=== PATIENT | male | born 1945 | race Caucasian/White ===

== ENCOUNTER 2021-12-25 14:20 | Emergency (ER) | payer OTHER ==
[~2021-12-25] VITALS: Ht 177.8 cm; Wt 74.8 kg
[2021-12-25] MEDS ORDERED: IV NORMAL SALINE 1000 ML BAG IV ONE ×2 (14:30→16:00)
[2021-12-25] MEDS ORDERED: POTA10CA43 PO (14:34)
[2021-12-25] MEDS ORDERED: HYDR25TA4 PO (14:34)
[2021-12-25] MEDS ORDERED: LEVO50TA8 PO (14:34)
[2021-12-25] MEDS ORDERED: ATOR20TA PO (14:34)
[2021-12-25] MEDS ORDERED: METO25TA6 PO (14:34)
[2021-12-25] MEDS ORDERED: DABI150C PO (14:34)
[2021-12-25] MEDS ORDERED: LOSA25TA3 PO (14:34)
--- NOTE | 2021-12-25 14:42 | NUR ---
patient brought in by paramedics having a syncopal episode at home was able to reach his recliner to sit and doesnt remember passed that time when he was brought in by paramedics
--- NOTE | 2021-12-25 14:43 | NUR ---
patient evaluated and seen by Dr. Barber upon arrival
[2021-12-25 14:51] LABS: HEMATOCRIT 45.5 % (36.7-47.1); MEAN CORPUSCULAR HEMOGLOBIN 31.6 uug (23.8-33.4); MEAN CORPUSCULAR VOLUME 92.9 fL (73.0-96.2); PLATELET COUNT (AUTO) 210 K/uL (152-348)
[2021-12-25 14:58] LABS: ALANINE AMINOTRANSFERASE 36 U/L (16-63); ALKALINE PHOSPHATASE 57 U/L (50-136); ASPARTATE AMINOTRANSFERASE 20 U/L (15-37); BILIRUBIN,DIRECT 0.2 mg/dL (0.0-0.2); BILIRUBIN,TOTAL 0.6 mg/dL (0.2-1.0); CARBON DIOXIDE 25 mmol/L (21-32); CHLORIDE 111 mmol/L (98-107); CREATININE 1.2 mg/dL (0.6-1.3); GLUCOSE 153 mg/dL (74-106); POTASSIUM 3.5 mmol/L (3.5-5.1); TOTAL PROTEIN, SERUM 6.3 g/dL (6.4-8.2); UREA NITROGEN, BLOOD 26 mg/dL (7-18)
--- NOTE | 2021-12-25 15:29 | NUR ---
called out to [facility] for doctor and bed availability. [facility] to call back with accepting doctor. updated with vital signs at this time
--- NOTE | 2021-12-25 15:32 | NUR ---
Doctor Barber speaking to [facility] at this time.
[2021-12-25] MEDS ORDERED: METOPROLOL TARTRATE 50 MG TABLET PO ONE (16:45)
[2021-12-25] MEDS ORDERED: METOPROLOL TARTRATE 50 MG TABLET ONE (16:54)
[2021-12-25 17:17] VITALS: BP 110/66
--- NOTE | 2021-12-25 20:17 | NUR ---
jewell called spoke with nurse lauren and informed her that the covid test is negative.
--- NOTE | 2021-12-25 21:00 | NUR ---
Spoke with [facility] update report given.
--- NOTE | 2021-12-25 22:40 | NUR ---
2214 [facility] EMT arrived with [facility] and report given. Transfer packet documents handed to RN. 2229 Called [facility] and spoke with Coni Ramirez RN and report given. 2239 Patient left via [facility] accompanied by 2 clean rice broker and 1 RN to [facility] Room 5316A. BARBARAS. RUTH. Patient in stable condition. Addendum: 12/25/21 at 2252 by MARY Patient left with IV [id number] SL from paramedics.
== END 2021-12-25 22:40 | disposition short-term general hospital (02) ==
LOC: ER 14:20
DX: R55 Syncope and collapse (principal); I48.91 Unspecified atrial fibrillation; E86.0 Dehydration; R00.0 Tachycardia, unspecified; Z20.822 Contact with and (suspected) exposure to COVID-19; J32.0 Chronic maxillary sinusitis; Z79.02 Long term (current) use of antithrombotics/antiplatelets; E03.9 Hypothyroidism, unspecified
CPT/HCPCS: 99291; 96360; 96361; 70450; 87426; 80076; 80048; 84443; 85025; 85730; 84484; 36415; 93005; 71045; J7040 ×2; A4663